=== PATIENT | male | born 1985 | race Asian ===

== ENCOUNTER 2018-05-28 04:15 | Emergency (ER) | payer SELFPAY ==
[~2018-05-28] VITALS: Ht 185.4 cm; Wt 83.9 kg
[2018-05-28 04:23] VITALS: BP 151/95
== END 2018-05-28 04:41 | disposition home or self-care (01) ==
LOC: ER 04:15
DX: Z04.1 Encounter for examination and observation following transport accident (principal); F17.200 Nicotine dependence, unspecified, uncomplicated; F32.9 Major depressive disorder, single episode, unspecified; V03.99XA Pedestrian with other conveyance injured in collision with car, pick-up truck or van, unspecified whether traffic or nontraffic accident, initial encounter; Y93.89 Activity, other specified; Y92.89 Other specified places as the place of occurrence of the external cause; Y99.8 Other external cause status
CPT/HCPCS: 99281; 99406; A4606; Z7610; Z7502